=== PATIENT | female | born 1980 | race Caucasian/White ===

== ENCOUNTER 2018-12-30 21:26 | Emergency (ER) | payer OTHER ==
[~2018-12-30] VITALS: Ht 170.2 cm; Wt 65.9 kg
[2018-12-30 21:28] VITALS: BP 119/79
[2018-12-30] MEDS ORDERED: LIDOCAINE-MPF 1%, 5ML ONE (21:47)
[2018-12-30] MEDS ORDERED: DIPH,PERTUSS(ACELL),TET VAC/PF 0.5 ML IM-VACC ONE ×2 (21:47→22:00)
[2018-12-30] MEDS ORDERED: LIDOCAINE 1%, 2ML INFIL ONE (22:00)
[2018-12-30] MEDS ORDERED: IBUPROFEN 200 MG TABLET PO ONE (22:30)
[2018-12-30] MEDS ORDERED: IBUPROFEN 200 MG TABLET ONE (22:31)
== END 2018-12-30 22:53 | disposition home or self-care (01) ==
LOC: ED 22:15
DX: S61.411A Laceration without foreign body of right hand, initial encounter (principal); W21.03XA Struck by baseball, initial encounter; Y93.64 Activity, baseball; Y92.320 Baseball field as the place of occurrence of the external cause; Y99.8 Other external cause status
CPT/HCPCS: 12041; 90471; 90715

== ENCOUNTER 2020-12-08 09:41 | Emergency (ER) | payer OTHER ==
[~2020-12-08] VITALS: Ht 167.6 cm; Wt 67.1 kg
--- NOTE | 2020-12-08 10:48 | NUR ---
PA AT BS
--- NOTE | 2020-12-08 10:52 | NUR ---
THIS TECH CHAPERONED RUFINA JENKINS, DURING HIS BREAST EXAM.
--- NOTE | 2020-12-08 10:56 | NUR ---
XRAY AT BS
[2020-12-08 11:09] VITALS: BP 109/62
--- NOTE | 2020-12-08 11:09 | NUR ---
PT SITTING ON JORGE ANDRES/DEBRA. CALL LIGHT WITHIN REACH. NO NEEDS AT THIS TIME
--- NOTE | 2020-12-08 11:41 | NUR ---
RUFINA AND AT FOR BEDSIDE US
--- NOTE | 2020-12-08 11:53 | NUR ---
Patient given discharge instructions and they have confirmed that they understand the instructions. Patient ambulatory with steady gait.
== END 2020-12-08 11:55 | disposition home or self-care (01) ==
LOC: ED 11:48
DX: N63.20 Unspecified lump in the left breast, unspecified quadrant (principal)
CPT/HCPCS: 71045; 93005; 99283